=== PATIENT | female | born 1930 | race Caucasian/White ===

== ENCOUNTER → 2016-02-14 | Outpatient (CLI) | payer MEDICARE, OTHER ==
[~2016-02-14] MED LIST: DOXYCYCLINE HY100 MG PO; LOPRESSOR 550 MG/TAB PO; LUTEIN6 MG; MOTRIN 200200 MG/TAB PO; PROVENTIL0.09 MG/A1 IH; SYNTHROID0.1 MG/TAB PO; TURMERIC500 MG; eye promise
== END ==
LOC: WCC 11:30
DX: I87.8 Other specified disorders of veins (principal); L97.919 Non-pressure chronic ulcer of unspecified part of right lower leg with unspecified severity
CPT/HCPCS: A6212; G0463

== ENCOUNTER → 2016-02-14 | Outpatient (CLI) | payer MEDICARE, OTHER | LOC: ZCOL.LAB 15:14 | DX: I87.331 Chronic venous hypertension (idiopathic) with ulcer and inflammation of right lower extremity (principal) ==

== ENCOUNTER → 2016-02-17 | Outpatient (CLI) | payer MEDICARE, OTHER | LOC: WCC 13:00 | DX: I87.8 Other specified disorders of veins (principal); L97.919 Non-pressure chronic ulcer of unspecified part of right lower leg with unspecified severity; B95.62 Methicillin resistant Staphylococcus aureus infection as the cause of diseases classified elsewhere | CPT/HCPCS: 13919; 17719; A6212; G0463 ==

== ENCOUNTER → 2016-02-24 | Outpatient (CLI) | payer MEDICARE, OTHER | LOC: WCC 12:14 | DX: I87.8 Other specified disorders of veins (principal); L97.519 Non-pressure chronic ulcer of other part of right foot with unspecified severity | CPT/HCPCS: 13919; G0463 ==

== ENCOUNTER → 2016-03-02 | Outpatient (CLI) | payer MEDICARE, OTHER | LOC: WCC 11:39 | DX: I87.331 Chronic venous hypertension (idiopathic) with ulcer and inflammation of right lower extremity (principal) | CPT/HCPCS: 17719; A6212; G0463 ==

== ENCOUNTER → 2016-03-11 | Outpatient (CLI) | payer MEDICARE, OTHER | LOC: WCC | DX: I87.8 Other specified disorders of veins (principal); L97.519 Non-pressure chronic ulcer of other part of right foot with unspecified severity | CPT/HCPCS: 13919; 27510; 27514; A6197; G0463 ==

== ENCOUNTER → 2016-03-11 | Outpatient (CLI) | payer MEDICARE, OTHER | LOC: COL.VAS 10:30 | DX: I87.331 Chronic venous hypertension (idiopathic) with ulcer and inflammation of right lower extremity (principal); L97.819 Non-pressure chronic ulcer of other part of right lower leg with unspecified severity ==

== ENCOUNTER → 2016-03-18 | Outpatient (CLI) | payer MEDICARE, OTHER | LOC: WCC 08:42 | DX: I87.8 Other specified disorders of veins (principal); L97.919 Non-pressure chronic ulcer of unspecified part of right lower leg with unspecified severity | CPT/HCPCS: 27510; A6197; G0463 ==

== ENCOUNTER → 2016-03-27 | Outpatient (CLI) | payer MEDICARE, OTHER | LOC: WCC 10:27 | DX: I87.8 Other specified disorders of veins (principal); L97.819 Non-pressure chronic ulcer of other part of right lower leg with unspecified severity; I73.9 Peripheral vascular disease, unspecified | CPT/HCPCS: 13919; 27517; A6207; G0463 ==

== ENCOUNTER 2016-03-30 08:07 | Outpatient (CLI) | payer MEDICARE, OTHER ==
[~2016-03-30] VITALS: Ht 165.2 cm; Wt 103.0 kg
[2016-03-30] VITALS (8 sets, daily range): BP systolic 159–206; BP diastolic 68–102; PULSE 57–68; TEMP 97.5–98
[2016-03-30] MEDS ORDERED: PROVENTIL0.09 MG/A1 IH (08:51)
[2016-03-30] MEDS ORDERED: LUTEIN6 MG (08:52)
[2016-03-30] MEDS ORDERED: eye promise (08:52)
[2016-03-30] MEDS ORDERED: SYNTHROID0.1 MG/TAB PO (08:52)
[2016-03-30] MEDS ORDERED: LOPRESSOR 550 MG/TAB PO (08:53)
[2016-03-30] MEDS ORDERED: TURMERIC500 MG (08:53)
[2016-03-30] MEDS ORDERED: MOTRIN 200200 MG/TAB PO (08:54)
[2016-03-30] MEDS ORDERED: DOXYCYCLINE HY100 MG PO (15:22)
== END 2016-03-30 16:50 | disposition home or self-care (01) ==
LOC: COL.VAS 08:07
DX: I83.211 Varicose veins of right lower extremity with both ulcer of thigh and inflammation (principal); I83.212 Varicose veins of right lower extremity with both ulcer of calf and inflammation
CPT/HCPCS: C1894; J2250; J3010; J3370; J7040; J7050

== ENCOUNTER → 2016-04-01 | Outpatient (CLI) | payer MEDICARE, OTHER | LOC: WCC 10:15 | DX: I87.8 Other specified disorders of veins (principal); L97.519 Non-pressure chronic ulcer of other part of right foot with unspecified severity; I73.9 Peripheral vascular disease, unspecified | CPT/HCPCS: 13919; 27517; A6207; G0463 ==

== ENCOUNTER → 2016-04-08 | Outpatient (CLI) | payer MEDICARE, OTHER | LOC: COL.VAS 11:07 | DX: I83.211 Varicose veins of right lower extremity with both ulcer of thigh and inflammation (principal); Z09 Encounter for follow-up examination after completed treatment for conditions other than malignant neoplasm; I99.8 Other disorder of circulatory system ==

== ENCOUNTER → 2016-04-08 | Outpatient (CLI) | payer MEDICARE, OTHER | LOC: WCC | DX: I87.8 Other specified disorders of veins (principal); L97.819 Non-pressure chronic ulcer of other part of right lower leg with unspecified severity | CPT/HCPCS: 17717; 27517; A6207; A6212; G0463 ==

== ENCOUNTER → 2016-04-17 | Outpatient (CLI) | payer MEDICARE, OTHER | LOC: WCC 10:12 | DX: I87.2 Venous insufficiency (chronic) (peripheral) (principal); L97.919 Non-pressure chronic ulcer of unspecified part of right lower leg with unspecified severity ==

== ENCOUNTER → 2016-04-27 | Outpatient (CLI) | payer MEDICARE, OTHER | LOC: WCC 12:11 | DX: I87.8 Other specified disorders of veins (principal); I73.9 Peripheral vascular disease, unspecified; L97.919 Non-pressure chronic ulcer of unspecified part of right lower leg with unspecified severity; R60.0 Localized edema | CPT/HCPCS: 13973; A6199; G0463 ==

== ENCOUNTER → 2016-05-04 | Outpatient (CLI) | payer MEDICARE, OTHER | LOC: WCC 08:46 | DX: I87.2 Venous insufficiency (chronic) (peripheral) (principal); L97.919 Non-pressure chronic ulcer of unspecified part of right lower leg with unspecified severity; R60.0 Localized edema; I73.9 Peripheral vascular disease, unspecified | CPT/HCPCS: 13973; A6199; G0463 ==

== ENCOUNTER → 2016-05-11 | Outpatient (CLI) | payer MEDICARE, OTHER | LOC: WCC 11:03 | DX: I87.2 Venous insufficiency (chronic) (peripheral) (principal); L97.909 Non-pressure chronic ulcer of unspecified part of unspecified lower leg with unspecified severity; R60.0 Localized edema; I73.9 Peripheral vascular disease, unspecified | CPT/HCPCS: G0463 ==

== ENCOUNTER → 2016-05-15 | Outpatient (CLI) | payer MEDICARE, OTHER | LOC: WCC 11:30 | DX: I87.331 Chronic venous hypertension (idiopathic) with ulcer and inflammation of right lower extremity (principal); R60.0 Localized edema; E08.51 Diabetes mellitus due to underlying condition with diabetic peripheral angiopathy without gangrene | CPT/HCPCS: G0463 ==

== ENCOUNTER → 2016-05-18 | Outpatient (CLI) | payer MEDICARE, OTHER | LOC: WCC 08:43 | DX: I87.2 Venous insufficiency (chronic) (peripheral) (principal); R60.0 Localized edema | CPT/HCPCS: G0463 ==

== ENCOUNTER → 2016-05-22 | Outpatient (CLI) | payer MEDICARE, OTHER | LOC: WCC 10:53 | DX: I87.2 Venous insufficiency (chronic) (peripheral) (principal); L97.919 Non-pressure chronic ulcer of unspecified part of right lower leg with unspecified severity; I73.9 Peripheral vascular disease, unspecified; R60.0 Localized edema | CPT/HCPCS: 18867; A6209 ==

== ENCOUNTER 2016-05-25 09:37 | Outpatient (RCR) | payer MEDICARE, OTHER | END 2016-06-16 16:52 | disposition home or self-care (01) | LOC: WSPT 09:37 | DX: I87.331 Chronic venous hypertension (idiopathic) with ulcer and inflammation of right lower extremity (principal); E08.51 Diabetes mellitus due to underlying condition with diabetic peripheral angiopathy without gangrene; R60.0 Localized edema | CPT/HCPCS: G8978-GP; G8979-GP; G8980-GP ==

== ENCOUNTER → 2016-05-25 | Outpatient (CLI) | payer MEDICARE, OTHER | LOC: WCC 08:36 | DX: L97.919 Non-pressure chronic ulcer of unspecified part of right lower leg with unspecified severity (principal); I87.2 Venous insufficiency (chronic) (peripheral); I73.9 Peripheral vascular disease, unspecified; R60.0 Localized edema | CPT/HCPCS: 21064; 27510; A6021; A6197; G0463 ==

== ENCOUNTER → 2016-06-01 | Outpatient (CLI) | payer MEDICARE, OTHER | LOC: WCC 05-29 09:51 | DX: I87.2 Venous insufficiency (chronic) (peripheral) (principal); R60.0 Localized edema; L97.919 Non-pressure chronic ulcer of unspecified part of right lower leg with unspecified severity; I73.9 Peripheral vascular disease, unspecified | CPT/HCPCS: 13919; 27510; A6197; G0463 ==

== ENCOUNTER → 2016-06-10 | Outpatient (CLI) | payer MEDICARE, OTHER | LOC: WCC 08:51 | DX: I87.2 Venous insufficiency (chronic) (peripheral) (principal); L97.819 Non-pressure chronic ulcer of other part of right lower leg with unspecified severity | CPT/HCPCS: 13919; 27510; 27517; A6197; A6207; G0463 ==

== ENCOUNTER → 2016-06-17 | Outpatient (CLI) | payer MEDICARE, OTHER | LOC: WCC 10:21 | DX: I87.2 Venous insufficiency (chronic) (peripheral) (principal); L97.819 Non-pressure chronic ulcer of other part of right lower leg with unspecified severity | CPT/HCPCS: 13919; 13973; A6199; G0463 ==

== ENCOUNTER → 2016-06-26 | Outpatient (CLI) | payer MEDICARE, OTHER | LOC: WCC 09:28 | DX: I87.2 Venous insufficiency (chronic) (peripheral) (principal); L97.919 Non-pressure chronic ulcer of unspecified part of right lower leg with unspecified severity; I73.9 Peripheral vascular disease, unspecified | CPT/HCPCS: G0463 ==

== ENCOUNTER → 2016-07-14 | Outpatient (CLI) | payer MEDICARE, OTHER | LOC: WCC 08:44 | DX: I87.2 Venous insufficiency (chronic) (peripheral) (principal); L97.919 Non-pressure chronic ulcer of unspecified part of right lower leg with unspecified severity | CPT/HCPCS: 17717; A6212; G0463 ==

== ENCOUNTER → 2016-08-13 | Outpatient (CLI) | payer MEDICARE, OTHER | LOC: WCC 09:36 | DX: L97.819 Non-pressure chronic ulcer of other part of right lower leg with unspecified severity (principal); R60.9 Edema, unspecified; I87.2 Venous insufficiency (chronic) (peripheral) | CPT/HCPCS: 27510; A6197; G0463 ==

== ENCOUNTER → 2016-09-03 | Outpatient (CLI) | payer MEDICARE, OTHER | LOC: WCC 09:20 | DX: I87.2 Venous insufficiency (chronic) (peripheral) (principal); L97.819 Non-pressure chronic ulcer of other part of right lower leg with unspecified severity; I73.9 Peripheral vascular disease, unspecified; R60.0 Localized edema | CPT/HCPCS: 27510; A6197 ==

== ENCOUNTER → 2016-09-21 | Outpatient (CLI) | payer MEDICARE, OTHER | LOC: WCC 08:19 | DX: I87.2 Venous insufficiency (chronic) (peripheral) (principal); L97.819 Non-pressure chronic ulcer of other part of right lower leg with unspecified severity; I73.9 Peripheral vascular disease, unspecified; R60.9 Edema, unspecified | CPT/HCPCS: 27510; A6197 ==

== ENCOUNTER → 2016-11-09 | Outpatient (CLI) | payer MEDICARE, OTHER | LOC: WCC 08:44 | DX: L97.819 Non-pressure chronic ulcer of other part of right lower leg with unspecified severity (principal); I87.2 Venous insufficiency (chronic) (peripheral) | CPT/HCPCS: G0463 ==